=== PATIENT | female | born 1955 | race Asian ===

== ENCOUNTER 2016-12-08 05:25 | Emergency (ER) | payer OTHER ==
--- NOTE | 2016-12-08 05:33 | PDOC ---
History of Present Illness - General Chief Complaint: Pain, Acute Stated Complaint: SLIPPED AND FELL IN SHOWER,PAIN TO RIGHT BACK Time Seen by Provider: 12/08/16 05:30 - History of Present Illness Initial Comments: 12/08/16 05:31 slipped in shower while coloring her hair c/o r lateral rib pain hurts when she coughs Timing/Duration: 4-6 hours Severity: moderate Modifying Factors: improves with: immobilization, movement Associated Symptoms: reports: cough. denies: fever/chills, headaches, shortness of breath Past History - Past Medical History Allergies/Adverse Reactions: Allergies Allergy/AdvReac Type Severity Reaction Status Date / Time Penicillins Allergy Intermediate Swelling Verified 12/08/16 05:28 Home Medications: Ambulatory Orders Levothyroxine [Synthroid -] 75 mcg PO DAILY 12/08/16 Losartan Potassium 50 mg PO DAILY 12/08/16 Oxycodone HCl/Acetaminophen [Percocet 5-325 mg Tablet] 1 - 2 tab PO Q6H #24 tab MDD 8 tabs 12/08/16 Anemia: No Asthma: No Cancer: Yes (BREAST CANCER LEFT) Cardiac Disorders: No CVA: No COPD: No CHF: No Dementia: No Diabetes: No GI Disorders: No Disorders: No HTN: No Hypercholesterolemia: No Liver Disease: No Seizures: No Thyroid Disease: Yes - Surgical History Abdominal Surgery: No Appendectomy: No Cardiac Surgery: No Cholecystectomy: No Lung Surgery: No Neurologic Surgery: No Orthopedic Surgery: No - Family Disease History Comment:: 12/08/16 05:32 non contributory - Immunization History Immunization Up to Date: Yes - Psycho/Social/Smoking Cessation Hx Suicidal Ideation: No Smoking Status: No Smoking History: Current some day smoker Have you smoked in the past 12 months: Yes Number of Cigarettes Smoked Daily: 5 'Breaking Loose' booklet given: 03/22/12 Hx Alcohol Use: Yes (SOCIAL) Drug/Substance Use Hx: No Substance Use Type: None Hx Substance Use Treatment: No Review of Systems - Review of Systems All Other Systems: Reviewed and Negative *Physical Exam - Physical Exam General Appearance: Yes: Nourished, Appropriately Dressed HEENT: positive: Normal Voice Neck: negative: Tender Respiratory/Chest: positive: Decreased Breath Sounds, Other (tender lateral, mid thoracic) Cardiovascular: positive: Regular Rhythm Gastrointestinal/Abdominal: negative: Tender Lymphatic: negative: Adenopathy Extremity: positive: Normal Capillary Refill, Normal Inspection Integumentary: positive: Normal Color Neurologic: positive: Fully Oriented Medical Decision Making - Medical Decision Making 12/08/16 05:33 rib contusion vs fx image analgesia *DC/Admit/Observation/Transfer Diagnosis at time of Disposition: Rib fracture Qualifiers: Encounter type: initial encounter Rib fracture type: single rib Fracture type: closed Laterality: right Qualified Code(s): S22.31XA - Fracture of one rib, right side, initial encounter for closed fracture - Discharge Dispostion Disposition: HOME Condition at time of disposition: Stable - Prescriptions Prescriptions: Oxycodone HCl/Acetaminophen [Percocet 5-325 mg Tablet] 1 - 2 tab PO Q6H #24 tab MDD 8 tabs - Patient Instructions Printed Discharge Instructions: DI for Rib Fracture - Post Discharge Activity Work/School Note: Back to Work
[2016-12-08 05:35] VITALS: BP 162/91; PULSE 86; TEMP 97.7; BMI 19.3
[2016-12-08] MEDS ORDERED: OXYCODONE/APAP 5/325MG COMBO TABLET PO ONE (05:37)
[2016-12-08] MEDS ORDERED: OXYCODONE/APAP 5/325MG COMBO TABLET ONE ×2 (05:38→05:40)
== END 2016-12-08 06:21 | disposition home or self-care (01) ==
LOC: FER 05:25
DX: S22.31XA Fracture of one rib, right side, initial encounter for closed fracture (principal); W18.2XXA Fall in (into) shower or empty bathtub, initial encounter; Y93.89 Activity, other specified; Y92.002 Bathroom of unspecified non-institutional (private) residence as the place of occurrence of the external cause; F17.210 Nicotine dependence, cigarettes, uncomplicated; Z85.3 Personal history of malignant neoplasm of breast; E07.9 Disorder of thyroid, unspecified
CPT/HCPCS: 71020-TC; 71101-TC-RT; 99281-25

== ENCOUNTER 2016-12-10 00:06 | Emergency (ER) | payer OTHER ==
--- NOTE | 2016-12-10 00:15 | PDOC ---
History of Present Illness - General Chief Complaint: Pain, Acute Stated Complaint: PAIN/RIGHT RIB FRACTURE Time Seen by Provider: 12/10/16 00:11 History Source: Patient Exam Limitations: No Limitations - History of Present Illness Initial Comments: 12/10/16 00:11 This is a 61-year-old female who has a right sided rib fracture. Patient comes in complaining of pain. Patient was seen here and diagnosed. Patient was given Percocet. Patient said she took her Percocet and is still having significant in. Patient discomfort and pain so she came back in . She denied any shortness of breath. Patient's pain is not different was yesterday. PAST MEDICAL HISTORY: no significant history PAST SURGICAL HISTORY: no significant history FAMILY HISTORY: no pertinant history SOCIAL HISTORY: Pt lives with family and is employed. MEDICATIONS: reviewed ALLERGIES: As per nursing notes Review of Systems General: No fevers or chills, no weakness, no weight loss HEENT: No change in vision. No sore throat,. No ear pain CardioVascular: No chest pain or shortness of breath Respiratory:No cough, or wheezing. Gastrointestinal: no nausea, vomitting, diarrhea or constipation, No rectal bleeding Genitourinary: No dysuria, hematuria, or frequency Musculoskeletal: No joint or muscle pain or swelling Neurologic: No headache, vertigo, dizziness or loss of consciousness Psychiatric: nor depression Skin: No rashes or easy bruising Endocrine: no increased thirst or abnormal weight change Allergic: no skin or latex allergy All other systems reviewed and normal GENERAL: The patient is awake, alert, and fully oriented, in moderate distress HEAD: Normal with no signs of trauma. EYES: Pupils equal, round and reactive to light, extraocular movements intact, sclera anicteric, conjunctiva clear. CHEST: Lungs are clear to auscultation bilateral. There is decreased breath sounds secondary to poor inspiratory effort secondary to the pain. Otherwise normal exam. EXTREMITIES: Normal range of motion, no edema. NEUROLOGICAL: Normal speech, normal gait. PSYCH: Normal mood, normal affect. SKIN: Warm, Dry, normal turgor, no rashes or lesions noted. Assessment and plan: This is a 61-year-old female with rib fracture right sided who comes in complaining of increased pain. Patient was given Toradol and told she could take Naprosyn or ibuprofen in addition to the Percocet. Past History - Past Medical History Allergies/Adverse Reactions: Allergies Allergy/AdvReac Type Severity Reaction Status Date / Time Penicillins Allergy Intermediate Swelling Verified 12/10/16 00:08 Home Medications: Ambulatory Orders Levothyroxine [Synthroid -] 75 mcg PO DAILY 12/08/16 Losartan Potassium 50 mg PO DAILY 12/08/16 Oxycodone HCl/Acetaminophen [Percocet 5-325 mg Tablet] 1 - 2 tab PO Q6H #24 tab MDD 8 tabs 12/08/16 Anemia: No Asthma: No Cancer: Yes (BREAST CANCER LEFT) Cardiac Disorders: No CVA: No COPD: No CHF: No Dementia: No Diabetes: No GI Disorders: No Disorders: No HTN: No Hypercholesterolemia: No Liver Disease: No Seizures: No Thyroid Disease: Yes - Surgical History Abdominal Surgery: No Appendectomy: No Cardiac Surgery: No Cholecystectomy: No Lung Surgery: No Neurologic Surgery: No Orthopedic Surgery: No - Immunization History Immunization Up to Date: Yes - Psycho/Social/Smoking Cessation Hx Suicidal Ideation: No Smoking Status: No Smoking History: Current some day smoker Have you smoked in the past 12 months: Yes Number of Cigarettes Smoked Daily: 5 'Breaking Loose' booklet given: 03/22/12 Hx Alcohol Use: Yes (SOCIAL) Drug/Substance Use Hx: No Substance Use Type: None Hx Substance Use Treatment: No *DC/Admit/Observation/Transfer Diagnosis at time of Disposition: Rib fracture Qualifiers: Encounter type: subsequent encounter Rib fracture type: single rib Fracture type: closed Laterality: right Fracture healing: with routine healing Qualified Code(s): S22.31XD - Fracture of one rib, right side, subsequent encounter for fracture with routine healing - Discharge Dispostion Disposition: HOME Condition at time of disposition: Stable Admit: No - Patient Instructions Additional Instructions: In addition to the Percocet U can take ibuprofen 3 tablets 3 times a day with food or Aleve 2 tablets twice a day with food. Return to the emergency department immediately with ANY new, persistent or worsening symptoms. Continue any medications as previously prescribed by your physician. You should follow up with your primary doctor as soon as possible regarding today's emergency department visit. . Please make sure your doctor reviews the results of your emergency evaluation. Thank you for coming to the Emergency Department today for your care. It was a pleasure to see you today. Please note that your evaluation is INCOMPLETE until you follow-up with your doctor.
[2016-12-10 00:33] VITALS: BP 156/96; PULSE 82; BMI 19.3
== END 2016-12-10 00:49 | disposition home or self-care (01) ==
LOC: FER 00:06
DX: S22.31XD Fracture of one rib, right side, subsequent encounter for fracture with routine healing (principal); F17.210 Nicotine dependence, cigarettes, uncomplicated; Z85.3 Personal history of malignant neoplasm of breast; E07.9 Disorder of thyroid, unspecified
CPT/HCPCS: 99281-25

== ENCOUNTER 2017-06-10 07:33 | Day surgery (SDC) | payer OTHER ==
[2017-06-09 10:58] VITALS: BMI 19.3
[2017-06-10] MEDS ORDERED: PROPOFOL 20 ML ONE ×2 (07:37)
[2017-06-10] MEDS ORDERED: LIDOCAINE HCL/PF 2% SDV 5ML VIAL ONE (07:50)
[2017-06-10 09:45] VITALS: BP 118/80; PULSE 71; TEMP 97.9
--- NOTE | 2017-06-12 15:18 | PATH ---
Surgical Pathology Report Patient Name: MARVEL FRANCO [facility]. Rec. #: [id number] /Age/Gender: 1955 (Age: 62) / F Account: [id number] Location: [facility]-ENDOSCOPY Taken: 06/10/2017 Received: 06/10/2017 Reported: 06/12/2017 Physicians: Arie Hernandez M.D. Specimen(s) Received A: BX SIGMOID B: BX APPENDICEAL ORIFICE C: BX RIGHT COLON D: BX HEPATIC FLEXURE E: BX LEFT COLON Clinical History Rule out colon cancer Polyps Final Diagnosis A. SIGMOID, BIOPSY: TUBULAR ADENOMA. B. APPENDICEAL ORIFICE, BIOPSY: HYPERPLASTIC POLYP. C. RIGHT COLON, BIOPSY: TUBULAR ADENOMA. D. HEPATIC FLEXURE, BIOPSY: TUBULAR ADENOMA. E. LEFT COLON, BIOPSY: TUBULAR ADENOMA. Electronically Signed Vicki Sanchez M.D. Gross Description A. Received in formalin, labeled "sigmoid" is a taylor, irregular portion of soft tissue measuring 0.2 cm. in greatest dimension. The specimen is submitted in toto in one cassette. B. Received in formalin, labeled "appendiceal orifice" is a taylor, polypoid portion of soft tissue measuring 0.6 cm. in greatest dimension. The specimen is submitted in toto in one cassette. C. Received in formalin, labeled "right colon" is a taylor, irregular portion of soft tissue measuring 0.2 cm. in greatest dimension. The specimen is submitted in toto in one cassette. D. Received in formalin, labeled "hepatic flexure" is a taylor, polypoid portion of soft tissue measuring 0.6 cm. in greatest dimension. The specimen is submitted in toto in one cassette. E. Received in formalin, labeled "left colon" is a taylor, polypoid portion of soft tissue measuring 0.7 cm. in greatest dimension. The specimen is submitted in toto in one cassette. 06/11/201706/11/2017
== END 2017-06-10 09:40 | disposition home or self-care (01) ==
LOC: FASU-ENDO 07:33
PROVIDERS: ATTEND Internal Medicine Gastroenterology
PROC: 0DBM8ZX Excision of Descending Colon, Via Natural or Artificial Opening Endoscopic, Diagnostic (ICD-10-PCS; 2017-06-10)
PROC: 0DBK8ZX Excision of Ascending Colon, Via Natural or Artificial Opening Endoscopic, Diagnostic (ICD-10-PCS; 2017-06-10)
PROC: 0DBN8ZX Excision of Sigmoid Colon, Via Natural or Artificial Opening Endoscopic, Diagnostic (ICD-10-PCS; 2017-06-10)
PROC: 0DBK8ZX Excision of Ascending Colon, Via Natural or Artificial Opening Endoscopic, Diagnostic (ICD-10-PCS; principal; 2017-06-10 08:31)
PROC: 0DBL8ZX Excision of Transverse Colon, Via Natural or Artificial Opening Endoscopic, Diagnostic (ICD-10-PCS; 2017-06-10 08:31)
DX: Z86.010 Personal history of colon polyps (principal); D12.2 Benign neoplasm of ascending colon; D12.5 Benign neoplasm of sigmoid colon; K63.5 Polyp of colon
CPT/HCPCS: 88305-TC

== ENCOUNTER 2017-09-07 08:51 | Day surgery (SDC) | payer OTHER ==
[2017-09-03 16:47] VITALS: BMI 19.3
[2017-09-07] MEDS ORDERED: PROPOFOL 20 ML ONE ×2 (09:23)
[2017-09-07 11:26] VITALS: TEMP 97.7
[2017-09-07 12:00] VITALS: BP 104/60; PULSE 61
--- NOTE | 2017-09-10 16:36 | PATH ---
Surgical Pathology Report Patient Name: MARVEL FRANCO [facility]. Rec. #: [id number] /Age/Gender: 1955 (Age: 62) / F Account: [id number] Location: [facility]-ENDOSCOPY Taken: 09/07/2017 Received: 09/07/2017 Reported: 09/10/2017 Physicians: Arie Hernandez M.D. Specimen(s) Received BX TERMINAL ILEUM Clinical History Preoperative diagnosis: History of polyps Postoperative diagnosis: Polypoid lesion, polyp Final Diagnosis TERMINAL ILEUM, BIOPSY: INFLAMMATORY/GRANULATION TISSUE POLYP. Electronically Signed Vicki Sanchez M.D. Gross Description Received in formalin, labeled "terminal ileum" are 4 taylor, irregular portions of soft tissue ranging from 0.1-0.4 cm. in greatest dimension. The specimens are submitted in toto in one cassette. 09/08/201709/08/2017
== END 2017-09-07 12:00 | disposition home or self-care (01) ==
LOC: FASU-ENDO 08:51
PROVIDERS: ATTEND Internal Medicine Gastroenterology
PROC: 0DBB8ZX Excision of Ileum, Via Natural or Artificial Opening Endoscopic, Diagnostic (ICD-10-PCS; principal; 2017-09-07 10:44)
DX: K63.5 Polyp of colon (principal)

== ENCOUNTER 2020-03-15 06:33 | Emergency (ER) | payer OTHER, MEDICARE ==
[2020-03-15 06:44] VITALS: TEMP 97.9; BMI 21.4
--- NOTE | 2020-03-15 06:58 | PDOC ---
History of Present Illness - General Chief Complaint: Lightheaded Stated Complaint: "I have been walking to the R lately" Time Seen by Provider: 03/15/20 06:41 - History of Present Illness Initial Comments: 03/15/20 06:51 This 64-year-old woman with a history of left-sided breast cancer,HTN and colonic polyps presents with few week history of drifting to the right side when she awakens in the morning as well as intermittent generalized headaches. She denies vertigo, lightheadedness, facial or extremity weakness, speech abnormalities or word recall difficulty. She denies any nausea/vomiting during her headaches. Although she has not fallen secondary to her balance abnormality, she did strike her right shoulder against a wall when she drifted against it. She consulted her son who is a doctor regarding her symptoms and he suggested that she come to the ER for evaluation Patient states that she is moving out of the area in 3 days Medications as noted below Allergies: Penicillin PMD: Dr. Martínez Past History - Medical History Allergies/Adverse Reactions: Allergies Allergy/AdvReac Type Severity Reaction Status Date / Time Penicillins Allergy Intermediate Swelling Verified 03/15/20 06:46 Home Medications: Ambulatory Orders Levothyroxine [Synthroid -] 75 mcg PO DAILY 12/08/16 Losartan Potassium 50 mg PO DAILY 12/08/16 Calcium Carbonate/Vitamin D3 [Calcium 500-Vit D3 400 Tablet] 1 each PO DAILY 06/09/17 Cholecalciferol (Vitamin D3) [Vitamin D3 -] 1,000 unit PO DAILY 06/09/17 Multivitamin [One Daily] 1 each PO DAILY 06/09/17 Escitalopram Oxalate [Lexapro -] 10 mg PO DAILY 09/03/17 Anemia: No Asthma: No Cancer: Yes (BREAST CANCER LEFT) Cardiac Disorders: No CVA: No COPD: No CHF: No Dementia: No Diabetes: No GI Disorders: No Disorders: No HTN: Yes Hypercholesterolemia: No Liver Disease: No Seizures: No Thyroid Disease: Yes - Surgical History Abdominal Surgery: Yes (BOWEL RESSECTION) Appendectomy: No Cardiac Surgery: No Cholecystectomy: No Lung Surgery: No Neurologic Surgery: No Orthopedic Surgery: Yes (bunionectomy R foot) - Immunization History Immunization Up to Date: Yes - Psycho-Social/Smoking History Smoking Status: No Smoking History: Never smoked Have you smoked in the past 12 months: Yes Number of Cigarettes Smoked Daily: 3 'Breaking Loose' booklet given: 03/22/12 - Substance Abuse Hx (Audit-C & DAST Scrn) How often the patient has a drink containing alcohol: Never Score: In Men: 4 or > Positive; In Women: 3 or > Positive: 0 Screen Result (Pos requires Nsg. Audit-10AR): Negative Review of Systems - Review of Systems Able to Perform ROS?: Yes Comments:: 12 point review of systems is negative except for what is noted in the history of present illness *Physical Exam - Vital Signs Last Vital Signs Temp Pulse Resp BP Pulse Ox 97.9 F 69 18 157/99 98 03/15/20 06:37 03/15/20 06:37 03/15/20 06:37 03/15/20 06:37 03/15/20 06:37 - Physical Exam GENERAL: Adult female, alert and oriented x3 in no acute distress HEAD: Normal with no signs of trauma. EYES: PERRLA, pupils 2 mm equal and reactive to light EOMI, sclera anicteric, conjunctiva clear. ENT: Ears normal, nares patent, oropharynx clear without exudates. Moist mucous membranes. NECK: Normal range of motion, supple without lymphadenopathy, JVD, or masses. No bruits LUNGS: Breath sounds equal, clear to auscultation bilaterally. No wheezes, and no crackles. HEART:Regular rate and rhythm, normal S1 and S2 without murmur, rub or gallop. ABDOMEN:.normal bowel sounds No guarding,tenderness or rebound.No masses No distention. EXTREMITIES: Normal range of motion, no edema. No clubbing or cyanosis. No erythema, or tenderness. NEUROLOGICAL: Cranial nerves II through XII grossly intact. No abnormal nystagmus. Normal gait. No pronator drift. Normal speech. Motor 5/5 throughout. SKIN: Warm, Dry, normal turgor, no rashes or lesions noted. Medical Decision Making - Medical Decision Making 03/15/20 06:58 64-year-old woman with a history of HTN and breast cancer presents with few week history of intermittent disequilibrium (drifts to the right when walking after she awakens) and new intermittent headaches. No other acute symptoms. Exam as noted . No neurologic abnormalities. Patient informed that she would not be able to get an MRI today (which she had requested) but noncontrast head CT can be performed. Patient understood and agreed to the plan. Case signed out to incoming physician at end of shift. Discharge - Discharge Information Problems reviewed: Yes Clinical Impression/Diagnosis: Headache Qualifiers: Headache type: unspecified Headache chronicity pattern: acute headache Intractability: not intractable Qualified Code(s): R51 - Headache - Follow up/Referral Referrals: Nam Underwood MD [Staff Physician] - - Patient Discharge Instructions Patient Printed Discharge Instructions: DI for Headache Additional Instructions: you came to the Ed for headache and unsteadiness when you wake up in the morning. we did a cat scan, which didn't show any concerning findings. You must follow up with a neurologist as an outpatient and will likely need additional imaging. You should return to the ED for severe headache, severe unsteadiness on your feet, weakness on one side of your body or face, other new or worsening findings. - Post Discharge Activity
[2020-03-15 08:42] VITALS: BP 149/64; PULSE 60
--- NOTE | 2020-03-15 08:44 | PDOC ---
*Physical Exam - Vital Signs Last Vital Signs Temp Pulse Resp BP Pulse Ox 97.9 F 69 18 157/99 98 03/15/20 06:37 03/15/20 06:37 03/15/20 06:37 03/15/20 06:37 03/15/20 06:37 Medical Decision Making - Medical Decision Making 03/15/20 08:39 pt signed out to me pending CT head for disequilbrium that happens only when awakening in the morning. Ct head shows no acute pathology. will discharge home. Patient understands the necessity of outpatient work up. Discharge - Discharge Information Problems reviewed: Yes Clinical Impression/Diagnosis: Headache Qualifiers: Headache type: unspecified Headache chronicity pattern: acute headache Intractability: not intractable Qualified Code(s): R51 - Headache - Admission No - Follow up/Referral Referrals: Nam Underwood MD [Staff Physician] - - Patient Discharge Instructions Patient Printed Discharge Instructions: DI for Headache Additional Instructions: you came to the Ed for headache and unsteadiness when you wake up in the morning. we did a cat scan, which didn't show any concerning findings. You must follow up with a neurologist as an outpatient and will likely need additional imaging. You should return to the ED for severe headache, severe unsteadiness on your feet, weakness on one side of your body or face, other new or worsening findings. - Post Discharge Activity
== END 2020-03-15 08:47 ==
LOC: FER 06:33
DX: R51 Headache (principal)
CPT/HCPCS: 70450-TC; 99284-25